=== PATIENT | female | born 1975 | race Two or more races ===

== ENCOUNTER 2018-05-08 19:37 | Emergency (ER) | payer SELFPAY ==
[~2018-05-08] VITALS: Ht 160 cm; Wt 68.0 kg
[2018-05-08 19:40] VITALS: BP 110/80
[2018-05-08] MEDS ORDERED: Isovue-300 100ml vial INJ PRN (20:00)
--- NOTE | 2018-05-08 20:01 | Emergency Room Report ---
History of Present Illness General Chief Complaint: Dizziness Source: Patient (Jana Gill DO) Present Illness HPI Patient presents with complaints of weakness Reports that on she had lap cholecystectomy at [facility] She was discharged home the same day reports that she's had some continued discomfort to the abdomen She felt that she was somewhat constipated as well today however she felt increasingly weak lightheaded and near syncopal Denies any chest pain denies any vomiting or diarrhea and presents by paramedics (Jana Gill DO) Allergies: Coded Allergies: No Known Allergies (Unverified , 05/08/18) Patient History Past Medical History: see triage record Pertinent Family History: none Last Menstrual Period: 05/07/18 Now: No Reviewed Nursing Documentation: PMH: Agreed; PSxH: Agreed (Jana Gill DO) Nursing Documentation-PMH Past Medical History: No Stated History Hx Cardiac Problems: No - hypothyroid Hx Gastrointestinal Problems: Yes - gallbladder removed 2017 (Jana Gill DO) Review of Systems All Other Systems: negative except mentioned in HPI (Jana Gill DO) Physical Exam Vital Signs Date Time Temp Pulse Resp B/P (MAP) Pulse Ox O2 Delivery O2 Flow Rate FiO2 05/08/18 19:29 97.4 84 18 110/80 98 Room Air 97.3 Sp02 EP Interpretation: reviewed, normal General Appearance: well appearing, no apparent distress Head: normocephalic, atraumatic Eyes: bilateral eye PERRL, bilateral eye EOMI ENT: hearing grossly normal, normal pharynx Neck: supple Respiratory: lungs clear Cardiovascular #1: regular rate, rhythm Gastrointestinal: other - Patient has findings consistent with a lap cholecystectomy with the 3 incisions, abdomen is essentially tender diffusely no obvious peritoneal finding Musculoskeletal: normal inspection Neurologic: alert, oriented x3 Skin: pallor Lymphatic: no adenopathy (Jana Gill DO) Medical Decision Making Diagnostic Impression: Primary Impression: Postoperative abdominal pain Additional Impression: S/P cholecystectomy ER Course Hospital Course 42 yo F presents with dizziness, abd pain. s/p cholecystectomy 4 days ago Clinical course Patient initially seen and evaluated by Dr Gill; please see his note for full history and physical Labs - no leukocytosis, Hb/Hct stable, electrolytes ok, minimal elevated AST/ALT CT abdomen and pelvis - minimal air consistent with surgery. ? abscess/fluid collection near umbilicus I reevaluated the patient. Discussed findings with patient and family. Patient continues to have significant amount of pain on exam despite pain medication. I believe patient would benefit from observation and serial exams Patient is requesting to be transferred back to [facility] as she had her surgery there. via insurance, we were able to arrange transfer back to [facility] I feel this is a highly complex case requiring extensive working including EKG/ Rhythm strip, Xray/CT/US, Blood/urine lab work, repeat exams while in ED, and administration of strong opiates/narcotics for pain control, admission to hospital or close patient follow up. Diagnosis - postoperative abd pain, s/p cholecystectomy transferred in serious condition Labs Test 05/08/18 20:12 05/08/18 20:17 Urine Color Sravani Urine Appearance Slightly cloudy Urine pH 8 (4.5-8.0) Urine Specific [place] 1.010 (1.005-1.035) Urine Protein 2+ (NEGATIVE) Urine Glucose (UA) Negative (NEGATIVE) Urine Ketones Negative (NEGATIVE) Urine Blood 1+ (NEGATIVE) Urine Nitrite Negative (NEGATIVE) Urine Bilirubin Negative (NEGATIVE) Urine Ictotest Negative (NEGATIVE) Urine Urobilinogen Normal MG/DL (0.0-1.0) Urine Leukocyte Esterase 1+ (NEGATIVE) Urine RBC 2-4 /HPF (0 - 2) Urine WBC 5-10 /HPF (0 - 2) Urine Squamous Epithelial Cells Many /LPF (NONE/OCC) Urine Bacteria Few /HPF (NONE) Urine HCG, Qualitative Negative (NEGATIVE) White Blood Count 8.1 K/UL (4.8-10.8) Red Blood Count 4.61 M/UL (4.20-5.40) Hemoglobin 14.4 G/DL (12.0-16.0) Hematocrit 40.2 % (37.0-47.0) Mean Corpuscular Volume 87 FL (80-99) Mean Corpuscular Hemoglobin 31.3 PG (27.0-31.0) Mean Corpuscular Hemoglobin Concent 35.9 G/DL (32.0-36.0) Red Cell Distribution Width 10.8 % (11.6-14.8) Platelet Count 166 K/UL (150-450) Mean Platelet Volume 11.8 FL (6.5-10.1) Neutrophils (%) (Auto) 55.5 % (45.0-75.0) Lymphocytes (%) (Auto) 35.3 % (20.0-45.0) Monocytes (%) (Auto) 6.9 % (1.0-10.0) Eosinophils (%) (Auto) 1.5 % (0.0-3.0) Basophils (%) (Auto) 0.9 % (0.0-2.0) Sodium Level 140 MMOL/L (136-145) Potassium Level 3.5 MMOL/L (3.5-5.1) Chloride Level 102 MMOL/L (98-107) Carbon Dioxide Level 29 MMOL/L (21-32) Anion Gap 9 mmol/L (5-15) Blood Urea Nitrogen 7 mg/dL (7-18) Creatinine 1.0 MG/DL (0.55-1.30) Estimat Glomerular Filtration Rate > 60 mL/min (>60) Glucose Level 99 MG/DL (74-106) Lactic Acid Level 1.70 mmol/L (0.4-2.0) Calcium Level 9.3 MG/DL (8.5-10.1) Total Bilirubin 0.7 MG/DL (0.2-1.0) Aspartate Amino Transf (AST/SGOT) 64 U/L (15-37) Alanine Aminotransferase (ALT/SGPT) 99 U/L (12-78) Alkaline Phosphatase 98 U/L (46-116) Total Creatine Kinase 38 U/L (26-308) Creatine Kinase MB < 0.5 NG/ML (0.0-3.6) Creatine Kinase MB Relative Index 1.3 Total Protein 7.9 G/DL (6.4-8.2) Albumin 3.6 G/DL (3.4-5.0) Globulin 4.3 g/dL Albumin/Globulin Ratio 0.8 (1.0-2.7) (Jim Somers MD) CT/MRI/US Diagnostic Results CT/MRI/US Diagnostic Results : Imaging Test Ordered: CT A/P Impression Status post cholecystectomy. Minimal pneumoperitoneum which may be postsurgical if patient has undergone recent abdominal surgery. Clinical correlation is recommended as otherwise gastrointestinal perforation must be considered. Small gas collection in gallbladder fossa which again is likely postsurgical. No abnormal fluid or abscess identified. Mild soft tissue stranding in the right upper quadrant and right lower quadrant which may be postsurgical or reflect possible inflammatory changes. No abnormal fluid collections or abscess collection identified. Small 1.7 x 1.4 gas and fluid containing collection along the midline anterior abdominal wall just below level of umbilicus subjacent to skin surface which may also be postsurgical, but abscess cannot be excluded. (Jim Somers MD) Last Vital Signs Date Time Temp Pulse Resp B/P (MAP) Pulse Ox O2 Delivery O2 Flow Rate FiO2 05/08/18 19:29 97.4 84 18 110/80 98 Room Air 97.3 (Jana Gill DO) Status: improved (Jim Somers MD) Disposition: XFER [facility] Condition: Serious Jana Gill DO May 08, 2018 20:01 Jim Somers MD May 09, 2018 01:24
[2018-05-08 20:38] LABS: BASOPHILS % (AUTO) 0.9 % (0.0-2.0); EOSINOPHILS % (AUTO) 1.5 % (0.0-3.0); HEMATOCRIT 40.2 % (37.0-47.0); HEMOGLOBIN 14.4 G/DL (12.0-16.0); LYMPHOCYTES % (AUTO) 35.3 % (20.0-45.0); MEAN CORPUSCULAR VOLUME 87 FL (80-99); MONOCYTES % (AUTO) 6.9 % (1.0-10.0); NEUTROPHILS % (AUTO) 55.5 % (45.0-75.0); PLATELET COUNT 166 K/UL (150-450); RED BLOOD COUNT 4.61 M/UL (4.20-5.40); RED CELL DISTRIBUTION WIDTH 10.8 % (11.6-14.8); WHITE BLOOD COUNT 8.1 K/UL (4.8-10.8)
[2018-05-08 20:38] LABS: APPEARANCE,URINE SLIGHTLY CLOUDY; BILIRUBIN, URINE NEGATIVE (NEGATIVE); COLOR,URINE AMBER; GLUCOSE, URINE (UA) NEGATIVE (NEGATIVE); KETONES,URINE NEGATIVE (NEGATIVE); LEUKOCYTE ESTERASE ,URINE 1+ (NEGATIVE); NITRITE,URINE NEGATIVE (NEGATIVE); PH,URINE 8 (4.5-8.0); PROTEIN,URINE 2+ (NEGATIVE); UROBILINOGEN,URINE NORMAL MG/DL (0.0-1.0)
[2018-05-08 20:48] LABS: ANION GAP 9 mmol/L (5-15); BLOOD UREA NITROGEN 7 mg/dL (7-18); CALCIUM 9.3 MG/DL (8.5-10.1); CARBON DIOXIDE 29 MMOL/L (21-32); CHLORIDE 102 MMOL/L (98-107); POTASSIUM 3.5 MMOL/L (3.5-5.1); SODIUM 140 MMOL/L (136-145)
[2018-05-08 21:02] LABS: ALANINE AMINOTRANSFERASE 99 U/L (12-78); ALBUMIN 3.6 G/DL (3.4-5.0); ALBUMIN/GLOBULIN RATIO 0.8 (1.0-2.7); ALKALINE PHOSPHATASE 98 U/L (46-116); ASPARTATE AMINO TRANSFERASE 64 U/L (15-37); BILIRUBIN,TOTAL 0.7 MG/DL (0.2-1.0); CKMB < 0.5 NG/ML (0.0-3.6); CREATINE KINASE 38 U/L (26-308)
[2018-05-09 01:00] VITALS: BP 116/82
[2018-05-09] MEDS ORDERED: Piperacillin/Tazobactam 3.375 GM in NS 110 ML IVPB ONE (01:30)
[2018-05-09 03:40] VITALS: BP 117/81
--- NOTE | 2018-05-09 09:35 | Diagnostic Imaging Report ---
Indication: Abdominal pain Technique: Continuous helical transaxial imaging of the abdomen and pelvis was obtained from the lung bases to the pubic symphysis during intravenous contrast administration. Coronal 2-D reformats were also obtained. Study obtained in a Siemens sensation [address] Automatic Exposure Control was utilized. Total Dose length Product (DLP): 610.[address] Dose Index Volume (CTDIvol): 11.66 mGy Comparison: None Findings: Mild reticular densities noted at the lung bases likely scar atelectasis. Cholecystectomy demonstrated. The liver and spleen are unremarkable. Single focus of the air noted in the gallbladder fossa which may be residual from previous surgery. There is also small focus of subcutaneous air at the level of the umbilicus further substantiating the fact the patient has probably had recent surgery. Please correlate with the surgical history. Soft tissue stranding in the subcutaneous fat and anterior abdominal wall some noted again in keeping with recent surgery. No evidence of bowel obstruction or any significant fluid. The pancreas and kidneys, both adrenal glands appear unremarkable. The appendix is normal. There are bilateral ovarian cysts present. Urinary bladder is unremarkable. IMPRESSION: Trace pneumoperitoneum and a small amount of air in the anterior abdominal wall. Suspect recent cholecystectomy. Correlate clinically. Normal appendix Bilateral ovarian cysts [facility] has communicated the preliminary results to the Emergency Department. Their findings are largely concordant with this report. The CT scanner at [facility] is accredited by the [employer] and the scans are performed using dose optimization techniques as appropriate to a performed exam including Automatic Exposure control.
--- NOTE | 2018-05-09 10:13 | Diagnostic Imaging Report ---
Indication: Dyspnea Comparison: None A single view chest radiograph was obtained. Findings: Cardiomediastinal appearance is within normal limits for age. The lungs are clear. Pulmonary vascularity is appropriate. The diaphragmatic contour is smooth and costophrenic angles are sharp. No pleural effusions are identified. The bones are unremarkable. Impression: No acute findings
--- NOTE | 2018-05-11 08:50 | Cardiology Report ---
APPROVED REPORT EKG Measurement Heart [id number] Normal sinus rhythm Low voltage QRS Septal infarct, age undetermined Abnormal ECG
== END 2018-05-09 03:40 | disposition short-term general hospital (02) ==
LOC: EDBD 19:37 → EMR 22:30
DX: G89.18 Other acute postprocedural pain (principal); Z90.49 Acquired absence of other specified parts of digestive tract; E03.9 Hypothyroidism, unspecified
CPT/HCPCS: 71045; 74177; 80053; 81003; 81025; 82550; 82553; 83605; 85025; 87040; 93005; 96365; 99285; J2543; Q9967